=== PATIENT | female | born 1960 | race Asian ===

== ENCOUNTER 2017-01-27 11:26 | Emergency (ER) | payer OTHER ==
[~2017-01-27] VITALS: Ht 160 cm; Wt 59.1 kg
[2017-01-27 11:38] VITALS: BP 142/91
[2017-01-27] MEDS ORDERED: HYDROGEN PEROXIDE 118 ML SOLUTION ONE ×2 (11:38→12:23)
[2017-01-27] MEDS ORDERED: LIDOCAINE HCL 1% 10 ML VIAL ONE ×2 (11:38→12:39)
[2017-01-27] MEDS ORDERED: PERTUSS(ACELL),DIPH,TET VAC/PF 0.5 ML VIAL IM ONE (13:00)
[2017-01-27] MEDS ORDERED: OxyCODONE HCL/ACETAMINOPHEN 5-325 MG TABLET PO ONE (13:15)
== END 2017-01-27 13:15 | disposition home or self-care (01) ==
LOC: EMS 11:27
DX: S61.411A Laceration without foreign body of right hand, initial encounter (principal); S81.011A Laceration without foreign body, right knee, initial encounter; W01.0XXA Fall on same level from slipping, tripping and stumbling without subsequent striking against object, initial encounter; Y93.89 Activity, other specified; Y92.89 Other specified places as the place of occurrence of the external cause; Y99.8 Other external cause status
CPT/HCPCS: 12002; 73130; 90471; 90715; 99284; J3490